=== PATIENT | male | born 1970 | race African-American/Black ===

== ENCOUNTER 2017-09-19 01:07 | Emergency (ER) | payer BC ==
--- NOTE | 2017-09-19 01:19 | EDM.PDOC ---
ED HPI GENERAL MEDICAL PROBLEM - General Chief Complaint: ENT Problem Stated Complaint: FLUID COMING OUT OF NOSE Time Seen by Provider: 09/19/17 01:19 Source of Information: Reports: Patient - History of Present Illness INITIAL COMMENTS - FREE TEXT/NARRATIVE: HISTORY AND PHYSICAL: History of present illness: [Patient states that he has had clear nasal fluid running from his nose today, he notes that this occurred 3 months prior as well, he has a history of a " sleep apnea surgery "one year ago, he was doing some [employer] and is concerned about a CSF leak. However there is no clear nasal discharge at this time on examination of his nares is right nares red and inflamed with boggy mucosa and some dried nasal exudative discharge is noted in the posterior nare. however, more consistent with sinusitis there is no active leakage are clearly quite current No fever nausea vomiting chills sweats no chest pain shortness breath headache dizziness palpitation about a urine symptoms no injury or trauma Review of systems: As per history of present illness and below otherwise all systems reviewed and negative. Past medical history: As per history of present illness and as reviewed below otherwise noncontributory. Surgical history: As per history of present illness and as reviewed below otherwise noncontributory. Social history: No reported history of drug or alcohol abuse. Family history: As per history of present illness and as reviewed below otherwise noncontributory. Physical exam: HEENT: Atraumatic, normocephalic, pupils reactive, negative for conjunctival pallor or scleral icterus, mucous membranes moist, throat clear, neck supple, nontender, trachea midline. Lungs: Clear to auscultation, breath sounds equal bilaterally, chest nontender. Heart: S1S2, regular, negative for clicks, rubs, or JVD. Abdomen: Soft, nondistended, nontender. Negative for masses or hepatosplenomegaly. Negative for costovertebral tenderness. Pelvis: Stable nontender. Genitourinary: Deferred. Rectal: Deferred. Extremities: Atraumatic, negative for cords or calf pain. Neurovascular unremarkable. Neuro: Awake, alert, oriented. Cranial nerves II through XII unremarkable. Cerebellum unremarkable. Motor and sensory unremarkable throughout. Exam nonfocal. Diagnostics: [CT head no contrast ] Therapeutics: [Amoxicillin 875 by mouth twice a day #20 no refill] Impression: Sinusitis Clinical evidence of CSF leak Definitive disposition and diagnosis as appropriate pending reevaluation and review of above. - Related Data Allergies Allergy/AdvReac Type Severity Reaction Status Date / Time No Known Allergies Allergy Verified 09/19/17 01:18 Home Meds: Home Meds . [No Known Home Meds] 09/19/17 [History] ED ROS GENERAL - Review of Systems Review Of Systems: See Below ED EXAM, GENERAL - Physical Exam Exam: See Below Course - Vital Signs Last Recorded V/S: Last Vital Signs Temp 97.6 F 09/19/17 01:15 Pulse 75 09/19/17 01:15 Resp 16 09/19/17 01:15 BP 130/92 H 09/19/17 01:15 Pulse Ox 99 09/19/17 01:15 - Orders/Labs/Meds Orders: Active Orders 24 hr Category Date Time Status Head wo Cont [CT] Stat Exams 09/19/17 01:19 Taken Departure - Departure Time of Disposition: 02:22 Disposition: Home, Self-Care 01 Condition: Good Clinical Impression: Sinusitis - Discharge Information Referrals: PCP,None [Primary Care Provider] - Forms: ED Department Discharge Additional Instructions: The following information is given to patients seen in the emergency department who are being discharged to home. This information is to outline your options for follow-up care. We provide all patients seen in our emergency department with a follow-up referral. The need for follow-up, as well as the timing and circumstances, are variable depending upon the specifics of your emergency department visit. If you don't have a primary care physician on staff, we will provide you with a referral. We always advise you to contact your personal physician following an emergency department visit to inform them of the circumstance of the visit and for follow-up with them and/or the need for any referrals to a consulting specialist. The emergency department will also refer you to a specialist when appropriate. This referral assures that you have the opportunity for follow-up care with a specialist. All of these measure are taken in an effort to provide you with optimal care, which includes your follow-up. Under all circumstances we always encourage you to contact your private physician who remains a resource for coordinating your care. When calling for follow-up care, please make the office aware that this follow-up is from your recent emergency room visit. If for any reason you are refused follow-up, please contact the [facility] emergency department at and asked to speak to the emergency department charge nurse. - My Orders Last 24 Hours: My Active Orders 09/19/17 01:19 Head wo Cont [CT] Stat - Assessment/Plan Last 24 Hours: My Active Orders 09/19/17 01:19 Head wo Cont [CT] Stat
--- NOTE | 2017-09-19 09:47 | CT ---
EXAM DATE: 09/19/17 PATIENT'S AGE: 46 Patient: RHINA BUCKLEY Facility: [place], [place] Site . Site : [id number] Study: CT Head [id number]/19/2018 2:05:55 AM Ordering Physician: Kinga Beatty Final Report: INDICATION: Clear fluid coming out of nose all day TECHNIQUE: CT Head without i.v. contrast. CONTRAST: None COMPARISON: None FINDINGS: CSF spaces: The ventricles are normal for age. Brain: No evidence of mass, acute infarction or hemorrhage is seen. No mass- effect or midline shift is seen. The brain parenchyma is otherwise normal in appearance with preservation of the amaya-white matter junction. Calvarium: Moderate mucosal thickening is present within the right maxillary sinus. The mastoid air cells are clear. The visualized orbits are grossly unremarkable. The calvarium is unremarkable in appearance with no fractures identified. IMPRESSIONS: 1. No evidence of acute infarction, intracranial hemorrhage, or mass-effect seen. 2. If the nasal fluid is clinically demonstrated to represent CSF rhinorrhea, evaluation with CT myelogram or scintigraphic cisternogram is recommended. Dictated by Bar Vargas MD @ 09/19/2017 2:12:37 AM Please note that all CT scans at this facility use dose modulation, iterative reconstruction, and/or weight-based dosing when appropriate to reduce radiation dose to as low as reasonably achievable. Dictated by: Bar Vargas MD @ 09/19/2017 02:13:35 (Electronic Signature) Report Signed by Proxy. [email or web address]
== END 2017-09-19 02:31 | disposition home or self-care (01) ==
LOC: MW.ED 01:07
DX: J32.9 Chronic sinusitis, unspecified (principal)
CPT/HCPCS: 70450; 70450-26; 99283-25